=== PATIENT | male | born 2000 | race Caucasian/White ===

== ENCOUNTER 2018-05-14 11:25 | Emergency (ER) | payer SELFPAY ==
[~2018-05-14] VITALS: Ht 177.8 cm; Wt 65.8 kg
--- NOTE | 2018-05-14 11:56 | Diagnostic Imaging Report ---
Indication: Right shoulder pain after injury. Comparison: None available. Technique: 3 views of right shoulder were obtained. Findings: No acute fracture or traumatic malalignment. Subacromial space is well-maintained. No abnormal soft tissue mineralizations. Impression: No acute osseous abnormality of the right shoulder. Dictated by: Dictated on workstation # [id number]
--- NOTE | 2018-05-14 12:34 | ED Upper Extremity ---
General Chief Complaint: Upper Extremity Stated Complaint: HURT SHOULDER FELL DOWN STAIRS Nursing Triage Note: PT AMB TO ROOM #6 W/O DIFFICULTY. A&OX4. CO RT SHOULDER PAIN THAT BEGAN YESTERDAY. PT REPORTS HE WAS HELPING A FRIEND MOVE YESTERDAY AND SLIPPED DOWN A FLIGHT OF STAIRS, HITTING HIS RT SHOULDER ON THE HAND RAILING. PT REPORTS HX RT SHOULDER INJURY TWO YEARS PRIOR (2015) AND DID NOT SEEK MEDICATION ATTENTION. DENIES HITTING HEAD AND LOC. Nursing Sepsis Screen: No Definite Risk Source: patient Exam Limitations: no limitations History of Present Illness Date Seen by Provider: May 14, 2018 Time Seen by Provider: 11:43 Initial Comments This 18 year old young man presents to the ER with complaints of right shoulder pain after injuring it last night. He fell while carrying a mattress down stairs. He struck his right shoulder on the railing. He denies head or neck injury or any other injuries. He retains range of motion but range of motion is painful, especially with abducting his arm. Onset: yesterday Method of Injury: fell Allergies and Home Medications Patient Home Medication List Home Medication List Reviewed: Yes Constitutional: no symptoms reported EENTM: no symptoms reported Respiratory: no symptoms reported Cardiovascular: no symptoms reported Gastrointestinal: no symptoms reported Genitourinary: no symptoms reported Musculoskeletal: see HPI Skin: no symptoms reported Psychiatric/Neurological: No Symptoms Reported Past Qcpbuqf-Fjpwgr-Xgaohr Hx Patient Social History Alcohol Use: Occasionally Uses Number of Drinks Today: 0 Alcohol Beverage of Choice: Beer Recreational Drug Use: No Smoking Status: Current Someday Smoker Type Used: Cigarettes 2nd Hand Smoke Exposure: Yes Recent Foreign Travel: No Contact w/Someone Who Travel: No Recent Infectious Disease Expo: No Recent Hopitalizations: No (DENIES MEDICAL HX.) Physical Abuse: No Sexual Abuse: No Past Medical History Surgeries: No Respiratory: No Cardiac: No Neurological: No Genitourinary: No Gastrointestinal: No Musculoskeletal: No Endocrine: No HEENT: No Cancer: No Psychosocial: No Nursing Suicide Risk Score: 0 Integumentary: No Blood Disorders: No Physical Exam Vital Signs Vital Signs - First Documented 05/14/18 11:35 Temp 97.9 Pulse 70 Resp 17 B/P (MAP) 139/82 (101) Pulse Ox 100 O2 Delivery Room Air Capillary Refill : Less Than 3 Seconds Height, Weight, BMI Height: 5'10.00" Weight: 145lbs. oz. 65.622241nv; BMI Method:Stated General Appearance: WD/WN, no apparent distress HEENT: normal ENT inspection Neck: normal inspection Cardiovascular: regular rate, rhythm, no edema Respiratory: lungs clear, normal breath sounds, no respiratory distress, no accessory muscle use Shoulder: normal ROM (pain and difficulty with range of motion) Elbow/Forearm: normal inspection, non-tender, no evidence of injury, normal ROM Wrist: Yes normal inspection, Yes non-tender, Yes no evidence of injury, Yes normal ROM Hand: normal inspection, non-tender, no evidence of injury, normal ROM Neurologic/Tendon: normal sensation, normal motor functions Neurologic/Psychiatric: medical records secretary II-XII nml as tested, no motor/sensory deficits, alert, normal mood/affect, oriented x 3 Skin: normal color, warm/dry Progress/Results/Core Measures Results/Orders My Orders Orders - AMALIA VANG MD Shoulder, Right, 3 Views (05/14/18 11:43) Vital Signs/I&O Blood Pressure Mean: 101 Diagnostic Imaging Diagonstic Imaging: Xray Plain Films/CT/US/NM/MRI: other (Right shoulder) Comments Right shoulder x-ray viewed by me and report reviewed. See report below: NAME: HUMAIRA [facility]A [facility] REC#: [id number] PT STATUS: REG ER : 2000 PHYSICIAN: AMALIA VANG MD ADMIT DATE: 05/14/18/ER Signed Date of Exam: 05/14/18 SHOULDER, RIGHT, 3 VIEWS Indication: Right shoulder pain after injury. Comparison: None available. Technique: 3 views of right shoulder were obtained. Findings: No acute fracture or traumatic malalignment. Subacromial space is well-maintained. No abnormal soft tissue mineralizations. Impression: No acute osseous abnormality of the right shoulder. Dictated by: Dictated on workstation # [id number] Dict: 05/14/18 1153 Trans: 05/14/18 1156 Interpreted by: RAHEEM GUTIÉRREZ MD Electronically signed by: RAHEEM GUTIÉRREZ MD 05/14/18 1156 Departure Impression Primary Impression: Right shoulder injury Qualified Codes: S49.91XA - Unspecified injury of right shoulder and upper arm , initial encounter Disposition: 01 HOME, SELF-CARE Condition: Stable Departure-Patient Inst. Decision time for Depature: 12:32 Patient Instructions: Shoulder Sprain Add. Discharge Instructions: For pain he may take ibuprofen up to 600 mg every 6 hours as needed. Add Tylenol (acetaminophen) up to 1000 mg every 6 hours as needed for additional pain relief. Ice in 20 minute intervals may also be very helpful. Gradually increase level of activity as pain allows. If you're not improving as expected , please follow-up with a primary care provider next week. All discharge instructions reviewed with patient and/or family. Voiced understanding. AMALIA VANG MD May 14, 2018 12:34
[2018-05-14 12:35] VITALS: BP 139/82
== END 2018-05-14 12:44 | disposition home or self-care (01) ==
LOC: ER 11:32
DX: S49.91XA Unspecified injury of right shoulder and upper arm, initial encounter (principal); F17.210 Nicotine dependence, cigarettes, uncomplicated; W10.9XXA Fall (on) (from) unspecified stairs and steps, initial encounter
CPT/HCPCS: 73030